=== PATIENT | female | born 1970 | race Caucasian/White ===

== ENCOUNTER 2017-08-07 07:09 | Emergency (ER) | payer BC ==
[2017-08-07] MEDS ORDERED: NS 0.9% 1000 ML* 1,000 ML IV ONE (07:39)
[2017-08-07] MEDS ORDERED: Oseltamivir CAP* 75 MG PO ONE (07:41)
[2017-08-07] MEDS ORDERED: Albuterol 2.5 MG/3 ML NEB.SOL* (0.083%) INH ONE ×2 (07:42→10:37)
[2017-08-07] MEDS ORDERED: methylPREDNISolone 125 MG* 2 ML VIAL IV ONE (07:42)
[2017-08-07 08:12] LABS: ABS Basophils 0 10^3/ul (0-0.2); ABS Eosinophils 0 10^3/ul (0-0.6); ABS Lymphocytes 1.2 10^3/ul (1.0-4.8); ABS Monocytes 0.8 10^3/ul (0-0.8); ABS Neutrophils 4.4 10^3/ul (1.5-7.7); ABS Nucleated RBC 0 10^3/ul; Eosinophil % 0.4 % (0-6); Hematocrit 36 % (35-47); Hemoglobin 12.4 g/dl (12.0-16.0); Lymphocyte % 18.4 % (25-47); Mean Corpuscular HGB Conc 34 g/dl (31-36); Mean Corpuscular Hemoglobin 33 pg (27-31); Mean Corpuscular Volume 97 fL (80-97); Mean Platelet Volume 8 um3 (7.4-10.4); Nucleated Red Blood Cells % 0.1; Platelet Count 184 10^3/ul (150-450); Red Blood Count 3.73 10^6/ul (4.0-5.4); Red Cell Distribution Width 15 % (10.5-15); White Blood Count 6.5 10^3/ul (3.5-10.8)
[2017-08-07 08:26] LABS: EGFR Non-African American 99.9 (>60)
[2017-08-07 08:44] LABS: INR 0.9 (0.77-1.02)
--- NOTE | 2017-08-07 08:50 | RAD ---
INDICATION: Chest pain, shortness of breath, positive influenza. COMPARISON: December 29, 2014 TECHNIQUE: Dual energy PA and routine lateral views of the chest were obtained. REPORT: Elevated lung volumes and mild prominence of the interstitial markings. Minimal prominence of the RIGHT minor fissure. No pulmonary infiltrate, focal pulmonary lesion, pneumothorax. Negative for cardiomegaly. Unremarkable central pulmonary vasculature and mediastinal contours. Dorsal column stimulator leads noted. IMPRESSION: Stigmata of potential chronic obstructive pulmonary disease. No acute cardiopulmonary process evident.
[2017-08-07] MEDS ORDERED: Iohexol 350* (CONTRAST) 500 ML MDV IV ONE (09:01)
--- NOTE | 2017-08-07 09:41 | RAD ---
INDICATION: Cough, chest pain, shortness of breath COMPARISON: August 07, 2017 chest radiograph and January 03, 2009 CT TECHNIQUE: Multidetector CT images were obtained from the lung apices to the upper abdomen with 75 mL Omnipaque 350 IV contrast. Pulmonary angiogram protocol. Multiplanar reformation including with maximum intensity projection. REPORT: Minimal basilar subsegmental atelectasis. No alveolar consolidation suspicious for pneumonia, focal pulmonary lesion, pleural effusion, pneumothorax. Asymmetric enlargement of the LEFT thyroid lobe increased over the 2008 exam. No conspicuous focal LEFT thyroid lesion however ultrasound would be more sensitive in this regard. 0.7 cm short axis prevascular lymph node without change. Similar subcarinal lymph node. Negative for thoracic lymphadenopathy. Negative for cardiomegaly or pericardial effusion. Normal diameter thoracic aorta. Negative for aortic dissection. Motion artifact decreases sensitivity and specificity for detection of pulmonary embolism at the level of the subsegmental pulmonary arteries. No filling defects are identified from the main to the subsegmental pulmonary arteries to indicate presence of a pulmonary embolism. Suggestion of mural thickening of the distal thoracic esophagus. Dorsal column stimulator leads. Negative for suspicious osseous lesions. IMPRESSION: 1. No evidence for pulmonary embolism or pneumonia. 2. Suggestion of mural thickening of the distal thoracic esophagus. Correlate with clinical assessment for potential esophagitis. Consider follow-up esophagram or endoscopy for further assessment. 3. Enlarged LEFT thyroid lobe. Consider nonemergent thyroid ultrasound for further assessment.
[2017-08-07] MEDS ORDERED: LORazepam TAB(*) 1 MG PO ONE (11:53)
[2017-08-07 12:22] VITALS: BP 109/54
[2017-08-07 14:36] LABS: Urine Appearance Clear; Urine Blood Negative (Negative); Urine Color Yellow; Urine Ketones Negative (Negative); Urine Protein Negative (Negative); Urine Specific Gravity 1.029 (1.010-1.030); Urine Urobilinogen Negative (Negative)
--- NOTE | 2017-08-07 18:29 | ED ---
Delta Quintero Stephanie, scribed for Yulissa Mcmansu MD on 08/07/17 at 0748 . Shortness of Breath - HPI Summary HPI Summary: The pt is a 47 y/o F BIBA with c/o SOB that began 4 days ago on 08/03/17. Symptoms include productive cough with rhodes/green mucus and feet and toe numbness. The pt describes her SOB as it feels like Im breathing through a straw and like an elephant is sitting on my chest. The pt saw an MD at the [facility] on Thursday (08/04/17) and tested positive via swab for influenza. She was started on Tamiflu, and states she did not take this am's dose. The patients temp was 103.4 2 days ago (08/05/17). The pt normally ambulates assisted with a cane due to multiple back operations. LNMP was in 2003. - History of Current Complaint Chief Complaint: EDShortnessOfBreath Hx Obtained From: Patient Onset/Duration: Gradual Onset, Lasting Days - 4, Still Present Timing: Constant Current Severity: Moderate Dyspnea At: Rest Aggrevating Factors: Nothing Alleviating Factors: Nothing Associated Signs & Symptoms: Cough (Productive), Fever, Nasal Congestion Related History: Obesity - Allergy/Home Medications Allergies/Adverse Reactions: Allergies Allergy/AdvReac Type Severity Reaction Status Date / Time Meperidine [From Demerol HCl] Allergy Severe SEIZURE Verified 02/03/17 14:49 Cyclobenzaprine Allergy Intermediate Dizziness Verified 02/03/17 14:49 [From Flexeril] Home Medications: Home Medications Chlorzoxazone [Lorzone] 750 mg PO .Q4-6H 08/07/17 [History Confirmed 08/07/17] FLUoxetine CAP* [PROzac CAP*] 20 mg PO DAILY 08/07/17 [History Confirmed ] Morphine TAB Extended Rel(*) [Ms Contin(*)] 30 mg PO Q8HR 08/07/17 [History Confirmed 08/07/17] Oxycodone HCl [Oxycontin 80 mg] 80 mg PO Q12HR 08/07/17 [History Confirmed 08/07] Tapentadol(NF) [Nucynta(NF)] 100 mg PO Q6HR PRN 08/07/17 [History Confirmed 07/13] PMH/Surg Hx/FS Hx/Imm Hx Previously Healthy: No - chronic back pain Respiratory History: Reports: Hx Pneumonia - 3 WEEK ICU STAY FOR PNEUMONIA 2010 Musculoskeletal History: Reports: Hx Back Problems - multiple surgeries, pain pump, laser, Other Musculoskeletal History Sensory History: Reports: Hx Contacts or Glasses - READING GLASSES Denies: Hx Hearing Aid Opthamlomology History: Reports: Hx Contacts or Glasses - READING GLASSES Neurological History: Reports: Hx Seizures - POSSIBLE SEIZURE ACTIVITY WHEN FELL 12/29/2014 - Surgical History Surgery Procedure, Year, and Place: [id number] MULTIPLE BACK SURGERIES, 1ST ONE AT AGE 18, [facility]. 2009 MORPHINE PAIN PUMP INSTALLED AND REMOVED. Hx Anesthesia Reactions: No Infectious Disease History: No Infectious Disease History: Denies: Traveled Outside the [place] in Last 30 Days - Family History Known Family History: Positive: Diabetes Negative: Cardiac Disease - Social History Occupation: Disabled Lives: With Family Alcohol Use: None Substance Use Type: Reports: None Hx Tobacco Use: No Smoking Status (MU): Never Smoked Tobacco Review of Systems Positive: Fever Cardiovascular: Negative Positive: Shortness Of Breath, Cough - rhodes/green sputum Gastrointestinal: Negative Skin: Negative Positive: Numbness - bilateral feet and toes Psychological: Normal All Other Systems Reviewed And Are Negative: Yes Physical Exam - Summary Physical Exam Summary: Appearance: Ill-appearing, moderate pain distress, Well-nourished Skin: Warm, color reflects adequate perfusion Head: Normal Head/Face inspection Eyes: Conjunctiva clear ENT: Normal inspection, pharynx clear. Neck: Supple, no nodes, no JVD. Respiratory: Lungs clear, Dyspnea at rest, Decreased breath sounds throughout. Scattered expiratory wheezes. Cardio: RRR, No murmur, pulses normal, brisk capillary refill Abdomen: soft, nontender Bowel sounds: present Musculoskeletal: Strength Intact/ ROM intact. No calf tenderness. No edema. Neuro: Alert, muscle tone normal, facial symmetry, speech normal, sensory/motor intact Psychological: Normal Triage Information Reviewed: Yes Vital Signs On Initial Exam: Initial Vitals Temp Pulse Resp BP Pulse Ox 98.7 F 87 24 102/61 99 08/07/17 07:10 08/07/17 07:10 08/07/17 07:10 08/07/17 07:10 08/07/17 07:10 Vital Signs Reviewed: Yes Diagnostics - Vital Signs Vital Signs Temp Pulse Resp BP Pulse Ox 08/07/17 07:10 98.7 F 87 24 102/61 99 - Laboratory Lab Results: Lab Results 08/07/17 08/07/17 08/07/17 Range/Units 08:00 08:00 08:00 WBC 6.5 (3.5-10.8) 10^3/ul RBC 3.73 L (4.0-5.4) 10^6/ul Hgb 12.4 (12.0-16.0) g/dl Hct 36 (35-47) % MCV 97 (80-97) fL MCH 33 H (27-31) pg MCHC 34 (31-36) g/dl RDW 15 (10.5-15) % Plt Count 184 (150-450) 10^3/ul MPV 8 (7.4-10.4) um3 Neut % (Auto) 68.4 (38-83) % Lymph % (Auto) 18.4 L (25-47) % Treasure % (Auto) 12.4 H (1-9) % Eos % (Auto) 0.4 (0-6) % Baso % (Auto) 0.4 (0-2) % Absolute Neuts (auto) 4.4 (1.5-7.7) 10^3/ul Absolute Lymphs (auto) 1.2 (1.0-4.8) 10^3/ul Absolute Monos (auto) 0.8 (0-0.8) 10^3/ul Absolute Eos (auto) 0 (0-0.6) 10^3/ul Absolute Basos (auto) 0 (0-0.2) 10^3/ul Absolute Nucleated RBC 0 10^3/ul Nucleated RBC % 0.1 INR (Anticoag Therapy) (0.77-1.02) APTT (26.0-36.3) seconds D-Dimer, Quantitative (Less Than 230) ng/mL Sodium 133 (133-145) mmol/L Potassium 3.9 (3.5-5.0) mmol/L Chloride 100 L (101-111) mmol/L Carbon Dioxide 25 (22-32) mmol/L Anion Gap 8 (2-11) mmol/L BUN 9 (6-24) mg/dL Creatinine 0.64 (0.51-0.95) mg/dL Est GFR ( Amer) 128.5 (>60) Est GFR (Non-Af Amer) 99.9 (>60) BUN/Creatinine Ratio 14.1 (8-20) Glucose 104 H (70-100) mg/dL Lactic Acid 1.5 (0.5-2.0) mmol/L Calcium 8.8 (8.6-10.3) mg/dL Total Bilirubin 0.40 (0.2-1.0) mg/dL AST 32 (13-39) U/L ALT 36 (7-52) U/L Alkaline Phosphatase 105 H (34-104) U/L Total Creatine Kinase 16 (10-223) U/L CK-MB (CK-2) 0.5 L (0.6-6.3) ng/mL Troponin I 0.01 (<0.04) ng/mL C-Reactive Protein 33.59 H (< 5.00) mg/L Total Protein 6.6 (6.4-8.9) g/dL Albumin 3.7 (3.2-5.2) g/dL Globulin 2.9 (2-4) g/dL Albumin/Globulin Ratio 1.3 (1-3) Urine Color Urine Appearance Urine pH (5-9) Ur Specific [place] (1.010-1.030) Urine Protein (Negative) Urine Ketones (Negative) Urine Blood (Negative) Urine Nitrate (Negative) Urine Bilirubin (Negative) Urine Urobilinogen (Negative) Ur Leukocyte Esterase (Negative) Urine Glucose (Negative) 08/07/17 08/07/17 Range/Units 08:00 09:55 WBC (3.5-10.8) 10^3/ul RBC (4.0-5.4) 10^6/ul Hgb (12.0-16.0) g/dl Hct (35-47) % MCV (80-97) fL MCH (27-31) pg MCHC (31-36) g/dl RDW (10.5-15) % Plt Count (150-450) 10^3/ul MPV (7.4-10.4) um3 Neut % (Auto) (38-83) % Lymph % (Auto) (25-47) % Treasure % (Auto) (1-9) % Eos % (Auto) (0-6) % Baso % (Auto) (0-2) % Absolute Neuts (auto) (1.5-7.7) 10^3/ul Absolute Lymphs (auto) (1.0-4.8) 10^3/ul Absolute Monos (auto) (0-0.8) 10^3/ul Absolute Eos (auto) (0-0.6) 10^3/ul Absolute Basos (auto) (0-0.2) 10^3/ul Absolute Nucleated RBC 10^3/ul Nucleated RBC % INR (Anticoag Therapy) 0.90 (0.77-1.02) APTT 32.6 (26.0-36.3) seconds D-Dimer, Quantitative 306 H (Less Than 230) ng/mL Sodium (133-145) mmol/L Potassium (3.5-5.0) mmol/L Chloride (101-111) mmol/L Carbon Dioxide (22-32) mmol/L Anion Gap (2-11) mmol/L BUN (6-24) mg/dL Creatinine (0.51-0.95) mg/dL Est GFR ( Amer) (>60) Est GFR (Non-Af Amer) (>60) BUN/Creatinine Ratio (8-20) Glucose (70-100) mg/dL Lactic Acid (0.5-2.0) mmol/L Calcium (8.6-10.3) mg/dL Total Bilirubin (0.2-1.0) mg/dL AST (13-39) U/L ALT (7-52) U/L Alkaline Phosphatase (34-104) U/L Total Creatine Kinase (10-223) U/L CK-MB (CK-2) (0.6-6.3) ng/mL Troponin I (<0.04) ng/mL C-Reactive Protein (< 5.00) mg/L Total Protein (6.4-8.9) g/dL Albumin (3.2-5.2) g/dL Globulin (2-4) g/dL Albumin/Globulin Ratio (1-3) Urine Color Yellow Urine Appearance Clear Urine pH 8.0 (5-9) Ur Specific [place] 1.029 (1.010-1.030) Urine Protein Negative (Negative) Urine Ketones Negative (Negative) Urine Blood Negative (Negative) Urine Nitrate Negative (Negative) Urine Bilirubin Negative (Negative) Urine Urobilinogen Negative (Negative) Ur Leukocyte Esterase Negative (Negative) Urine Glucose Negative (Negative) Result Diagrams: 08/07/17 08:00 08/07/17 08:00 Lab Statement: Any lab studies that have been ordered have been reviewed, and results considered in the medical decision making process. - Radiology CTA Chest Xray Interpretation: Positive (See Comments) Radiology Interpretation Completed By: Radiologist - 1. No evidence for pulmonary embolism or pneumonia. 2. Suggestion of mural thickening of the distal thoracic esophagus. Correlate with clinical assessment for potential esophagitis. Consider follow-up esophagram or endoscopy for further assessment. 3. Enlarged LEFT thyroid lobe. Consider nonemergent thyroid ultrasound for further assessment. CXR Xray Interpretation: Positive (See Comments) Radiology Interpretation Completed By: Radiologist - Stigmata of potential chronic obstructive pulmonary disease. No acute cardiopulmonary process evident. - EKG 08:09 Cardiac Rate: NL EKG Rhythm: Sinus Rhythm ST Segment: Non-Specific Ectopy: None EKG Interpretation: Normal AVIVCT, normal axis, nml QTc EKG Comparison: No Significant Change - 11/25/12 Re-Evaluation - Re-Evaluation First Eval Re-Evaluation Time: 11:35 Change: Unchanged - Pt appears better but does not feel noticeably better following breathing treatments. Pt feels like she will have a panic attack. O2 stat is 99. BP 100/20. HR 102. Comment: Pt is notified that she needs endoscopy and US of thyroid and she understands based on CTA. The pt has no current CP. She is anxious about going home but is reassured that testing and vital signs including O2 saturation are acceptable for discharge. Course/Dx - Course Course Of Treatment: Tests results show an elevated D-dimer and CRP. CTA shows no PE. Pt is notified that she needs endoscopy and US of thyroid and she understands. The pt was given Solu Medrol and 2 albuterol nebulizer treatments with improvement in her resp status. - Diagnoses Differential Diagnosis/HQI/PQRI: Positive: Bronchitis, COPD Exacerbation, Pneumonia, Pulmonary Embolism Provider Diagnoses: Bronchitis, Influenza, Bronchospasm Discharge - Discharge Plan Condition: Stable Disposition: HOME Prescriptions: Albuterol HFA INHALER* [Ventolin HFA Inhaler*] 1 - 2 puff INH Q4H PRN #1 mdi PRN Reason: Shortness Of Breath Azithromycin TAB* [Zithromax TAB (Z-MARCELA) 250 mg #6 tabs] 2 tab PO .TODAY, THEN 1 DAILY #1 marcela predniSONE TAB* [Deltasone TAB*] 20 mg PO DAILY #10 tab Patient Education Materials: Influenza (ED), Acute Bronchitis (ED), Bronchospasm (ED) Referrals: Gavin Hatfield MD [Medical Doctor] - 3 Days Additional Instructions: Continue and finish the tamiflu medication as directed. Start azithromycin and prednisone as directed. Return to the ER if you have any new or worsening symptoms. We gave you a copy of the CTA of your chest showing that you need endoscopy for a possible inflamed esophagus, and an ultrasound of your thyroid. The documentation as recorded by the Delta quesada Stephanie accurately reflects the service I personally performed and the decisions made by , Yulissa Mcmanus MD.
== END 2017-08-07 12:22 | disposition home or self-care (01) ==
LOC: ED 07:09
DX: J11.1 Influenza due to unidentified influenza virus with other respiratory manifestations (principal); J98.01 Acute bronchospasm; R05 Cough; R50.9 Fever, unspecified; R09.81 Nasal congestion; R06.02 Shortness of breath
CPT/HCPCS: 36415; 71046; 71275; 80053; 81003; 82550; 82553; 83605; 84484; 85025; 85379; 85610; 85730; 86140; 87040; 87205; 93005; 94640; 94760; 96374; 99283; A9270-GY; J2930; Q9967